=== PATIENT | female | born 1970 | race Caucasian/White ===

== ENCOUNTER 2018-10-19 09:42 | Emergency (ER) | payer BC ==
[~2018-10-19] VITALS: Ht 185.4 cm; Wt 102.1 kg
[2018-10-19 14:38] VITALS: BP 129/72
== END 2018-10-19 15:44 ==
LOC: ED 12:30
DX: R51 Headache (principal); R20.2 Paresthesia of skin; R42 Dizziness and giddiness; R11.2 Nausea with vomiting, unspecified; Z86.73 Personal history of transient ischemic attack (TIA), and cerebral infarction without residual deficits
CPT/HCPCS: 36415; 70450; 70551; 80053; 80307; 85025; 99284; Q0169